=== PATIENT | male | born 1945 | race Caucasian/White ===

== ENCOUNTER → 2018-06-22 10:49 | Outpatient (CLI) | payer MEDICARE, SELFPAY ==
--- NOTE | 2018-06-22 10:56 | MR_ITS ---
MR lumbar spine wo con, MR 3-d myelogram/MRCP HISTORY: Low back pain with intermittent low back pain, constant left leg pain and tingling ITS.REASON: DDD LUMBAR SPINE ORDERING PHYSICIAN: Radha Arreguin PATIENT AGE: 72 years Comparison: 06/21/2016 TECHNIQUE: Standard multiplanar multiecho sequences are performed without contrast. 3-D MIP and myelographic images are also rendered and reviewed FINDINGS: There is normal alignment. The spinal cord ends at the T12-L1 level. T11-T12: There is some minimal asymmetric bulging disc eccentric towards the right with minimal right lateral recess narrowing. T12-L1: Unremarkable. L1-L2: Unremarkable. L2-L3: Concentric bulging disc is present slightly eccentric toward the left along with facet and ligamentum flavum hypertrophy. There is mild left lateral recess and foraminal narrowing. The disc does abut the anterior aspect of the left L3 nerve root without displacement. L3-L4: There is concentric bulging disc with a small central disc protrusion. There is facet and ligamentum flavum hypertrophy with moderate bilateral lateral recess and mild bilateral foraminal narrowing. The small central disc protrusion is greatest slightly more prominent. L4-L5: Degenerative disc disease with a moderate sized concentric bulging disc and a small to medium sized central/left paracentral disc herniation causing compression upon the left aspect of the thecal sac and the underlying nerve roots with severe left lateral recess narrowing and severe left foraminal narrowing. There is moderate to severe right foraminal narrowing. There is a 12 mm area of decreased T1 signal involving the posterior and left aspect of the endplate of L4 showing some increased T2 signal anteriorly and may represent a Schmorl's node which is developed in the interval. The disc protrusion is slightly larger than when compared to the previous study. L5-S1: Severe degenerative disc disease with bulging disc with type II endplate changes. Endplate osteophytes are present along facet ligamentum hypertrophy with severe bilateral foraminal narrowing. IMPRESSION: 1. L2-L3: Concentric bulging disc is present slightly eccentric toward the left along with facet and ligamentum flavum hypertrophy. There is mild left lateral recess and foraminal narrowing. The disc does abut the anterior aspect of the left L3 nerve root without displacement. 2. L3-L4: There is concentric bulging disc with a small central disc protrusion. There is facet and ligamentum flavum hypertrophy with moderate bilateral lateral recess and mild bilateral foraminal narrowing. The small central disc protrusion is greatest slightly more prominent. 3. L4-L5: Degenerative disc disease with a moderate sized concentric bulging disc and a small to medium sized central/left paracentral disc herniation causing compression upon the left aspect of the thecal sac and the underlying nerve roots with severe left lateral recess narrowing and severe left foraminal narrowing. There is moderate to severe right foraminal narrowing. There is a 12 mm area of decreased T1 signal involving the posterior and left aspect of the endplate of L4 showing some increased T2 signal anteriorly and may represent a Schmorl's node which is developed in the interval. The disc protrusion is slightly larger than when compared to the previous study. 4. L5-S1: Severe degenerative disc disease with bulging disc with type II endplate changes. Endplate osteophytes are present along facet ligamentum hypertrophy with severe bilateral foraminal narrowing
== END ==
PROVIDERS: Family Provider Family Medicine; PCP Family Medicine; Visit Provider Nurse Practitioner Psychiatric/Mental Health
DX: M51.36 Other intervertebral disc degeneration, lumbar region (principal)
CPT/HCPCS: 72148; 76376

== ENCOUNTER 2019-01-28 13:39 | Inpatient (IN) ==
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
[2019-01-28 14:47] LABS: ABG Base Excess 3.4 mmol/L (-2.4-2.3); ABG HCO3 29.1 mmhg (22.0-26.0); ABG Oxygen Saturation 94 % (90-100); ABG PH 7.34 mmol/L (7.35-7.45); ABG PO2 77.2 mmhg (80-100); ABG TCO2 30.8 mmhg (23-27)
[2019-01-28 14:48] LABS: Basophils % 0.1 % (0.1-2.0); Eosinophils % 0.1 % (0.1-12.0); Hematocrit 32.5 % (42.0-52.0); Hemoglobin 10.2 g/dL (14.1-18.0); Lymphocytes # 0.7 K/mm3 (0.7-4.5); Lymphocytes % 8.2 % (10-50); Mean Corpuscular HGB Conc 31.5 g/dL (31.8-35.4); Mean Corpuscular Hemoglobin 26.5 pg (27.0-31.2); Mean Corpuscular Volume 84.3 fl (80-94); Mean Platelet Volume 8.3 fl (7.4-10.4); Monocytes # 0.5 K/mm3 (0.1-1.0); Monocytes % 5.4 % (1.7-9.3); Neutrophils # 7.7 K/mm3 (1.8-7.8); Neutrophils % 86.2 % (37.0-80.0); Platelet Count 239 K/mm3 (142-424); Red Blood Count 3.86 M/mm3 (4.60-6.20); Red Cell Distribution Width 15.6 % (11.5-17.5)
[2019-01-28 14:53] LABS: Allen's Test Acceptable; Oxygen 38 %
[2019-01-28 14:55] LABS: ABG PCO2 55.1 mmhg (35.0-45.0)
[2019-01-28 15:15] LABS: Albumin Level 2.1 gm/dL (3.4-5.0); Albumin/Globulin Ratio 0.5 (1.1-1.8); Bilirubin,Total 0.4 mg/dL (0.2-1.0); Calcium 7.8 mg/dL (8.5-10.1); Globulin 4.1 gm/dl (1.3-3.2); Total Protein,Serum 6.2 gm/dL (6.4-8.2)
[2019-01-28 15:16] LABS: Hypochromasia 1+; Lymphocytes % 5 % (10-50); Monocytes % 4 % (2-9); Neutrophils % 88 % (42-76); Total Cells Counted 100
[2019-01-28 21:27] LABS: Calcium 7.3 mg/dL (8.5-10.1)
[2019-01-29 06:25] LABS: Basophils % 0.1 % (0.1-2.0); Eosinophils # 0.1 K/mm3 (0.0-0.4); Eosinophils % 0.7 % (0.1-12.0); Hematocrit 28.5 % (42.0-52.0); Lymphocytes # 1.4 K/mm3 (0.7-4.5); Lymphocytes % 15.5 % (10-50); Mean Corpuscular HGB Conc 31.1 g/dL (31.8-35.4); Mean Corpuscular Hemoglobin 26.4 pg (27.0-31.2); Mean Corpuscular Volume 85.1 fl (80-94); Mean Platelet Volume 8.2 fl (7.4-10.4); Monocytes # 0.6 K/mm3 (0.1-1.0); Monocytes % 6.4 % (1.7-9.3); Neutrophils # 6.8 K/mm3 (1.8-7.8); Neutrophils % 77.3 % (37.0-80.0); Platelet Count 214 K/mm3 (142-424); Red Blood Count 3.35 M/mm3 (4.60-6.20); Red Cell Distribution Width 15.5 % (11.5-17.5); White Blood Count 8.8 K/mm3 (4.8-10.8)
[2019-01-29 06:32] LABS: Anion Gap 12.6 mEq/L (5-15); Calcium 7.1 mg/dL (8.5-10.1); Potassium 3.6 mmoL/L (3.5-5.1)
[2019-01-29 06:42] LABS: Hemoglobin 8.9 g/dL (14.1-18.0)
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
== END 2019-01-29 17:27 | disposition short-term general hospital (02) | DRG 183 ==
LOC: 2ND 13:39 → ER 13:39 → 2ND 19:32
PROVIDERS: ADMIT Family Medicine; ATTEND Family Medicine
CPT/HCPCS: 36415; 71250; 80048; 80053; 82550; 82553; 82803; 83605; 83690; 83874; 85007; 85025; 87040; 93005; 94640; 94761; 96365; 96366; 96367; 96375; 99285; G0378; J0456; J2405

== ENCOUNTER 2023-01-27 09:48 | Emergency (ER) | payer MEDICARE, SELFPAY ==
[2023-01-27 10:25] VITALS: BP 188/103; PULSE 74; RESP 21; TEMP 36.7; O2SAT 95; BMI 23.9
--- NOTE | 2023-01-27 10:39 | EXP.UTC ---
Discharge Plan Disposition Patient Disposition: Home, Self-Care Condition: Good Prescriptions Prescriptions: New ciprofloxacin HCl 0.3 % drops See Rx Instructions .ROUTE .COMPLEX Qty: 5 0RF Rx Instructions: put 1 drp in right eye every 2hr x2days; then 4 times/day x5days No Action Albuterol Sulfate 90 MCG aerosol 1 puff inhalation Q3HP PRN (Reason: breathing) gabapentin 600 MG tablet 600 mg PO TID lisinopril 20 MG tablet 20 mg PO BID Rx Instructions: nortriptyline 25 MG capsule 25 mg PO DAILY amlodipine 10 MG tablet 10 mg PO DAILY esomeprazole magnesium 40 MG capsule,delayed release(DR/EC) 40 mg PO DAILY montelukast 10 MG tablet 10 mg PO PM oxycodone-acetaminophen 1 EACH tablet 1 tab PO QID PRN (Reason: pain) hydrochlorothiazide 25 MG tablet 25 mg PO DAILY Referrals Follow up/Referrals: Kyle Bravo [Primary Care Provider] - See instructions Activity Restrictions/Add. Instructions Additional Instructions/Restrictions: Use the eye drops as directed. Strict hand washing in the house hold, because conjunctivitis is very contagious. Follow up with your regular doctor. GO TO THE ER FOR ANY WORSENING SYMPTOMS OR CONCERNS Clinical Impressions Clinical Impression: Acute conjunctivitis of right eye Instructions Patient Instructions: How to Instill Eye Drops, DI for Conjunctivitis Discharge ED Provider: Jose Carlos Linda [facility] General Stated complaint: RT eye redness w/drainage Mode of Arrival: Ambulatory Source of Information: Patient Limitations: No Limitations Time Seen by Provider: 01/27/23 10:39 Description of Symptoms (Recalled from Triage Doc. by RN): PATIENT C/O REDNESS AND DRAINAGE TO RIGHT EYE X 2 DAYS HEENT Symptoms (Recalled from RN notes): Yes Resp Symptoms (Recalled from RN notes): No Skin Symptoms (Recalled from RN notes): No MS Symptoms (Recalled from RN notes): No Functional Status (Recalled from RN notes): WNL History of Present Illness Provider Complaint: He has had right eye irritation, redness, and matting with greenish drainage for the past 2 days. Related Data Home Medications Medication Instructions Recorded Confirmed Albuterol Sulfate 1 puff inhalation Q3HP PRN 01/28/19 09/27/19 breathing amlodipine 10 mg tablet 10 mg PO DAILY Hypertension 01/28/19 09/27/19 esomeprazole magnesium 40 mg 40 mg PO DAILY GERD 01/28/19 09/27/19 capsule,delayed release gabapentin 600 mg tablet 600 mg PO TID Pain 01/28/19 09/27/19 hydrochlorothiazide 25 mg tablet 25 mg PO DAILY Hypertension 01/28/19 09/27/19 lisinopril 20 mg tablet 20 mg PO BID Hypertension 01/28/19 09/27/19 montelukast 10 mg tablet 10 mg PO PM allergies 01/28/19 09/27/19 nortriptyline 25 mg capsule 25 mg PO DAILY Pain 01/28/19 09/27/19 oxycodone-acetaminophen 7.5 mg-325 1 tab PO QID PRN pain 01/28/19 09/27/19 mg tablet Previous Rx's Medication Instructions Recorded ciprofloxacin HCl 0.3 % eye drops See Rx Instructions ophthalmic 01/27/23 (eye) .COMPLEX #5 mL Allergies Allergy/AdvReac Type Severity Reaction Status Date / Time aspirin [ASPIRIN] Allergy Unknown SWELLING Verified 05/20/18 05:03 codeine [CODEINE] Allergy Unknown VOMITING/PASSING Verified 05/20/18 05:03 OUT Worker's Comp Is this a Worker's Comp case?: No [facility] Disclaimer: The information contained in this section may have been updated after the patient was seen, as this information can be updated by other users. Social History Smoking Status: Unknown if ever smoked second hand exposure: No alcohol intake: never current occupational status: retired Travel in the last 8 weeks: None household members: family housing: house caffeine: No ROS Obtained: Yes All systems reviewed & no additional complaints except as documented Constitutional Constitutional
[2023-01-27 10:50] VITALS: BP 188/103; PULSE 74; RESP 21; TEMP 36.7; O2SAT 95
== END 2023-01-27 10:55 | disposition home or self-care (01) ==
PROVIDERS: Emergency Provider Nurse Practitioner Family; PCP Family Medicine
DX: H10.31 Unspecified acute conjunctivitis, right eye (principal)
CPT/HCPCS: 99204; 99212; G0463